=== PATIENT | female | born 1980 | race Caucasian/White ===

== ENCOUNTER 2017-10-08 15:24 | Emergency (ER) | payer MEDICAID ==
[~2017-10-08] VITALS: Ht 165.1 cm; Wt 61.1 kg
[~2017-10-08 15:24] MED LIST: IBUP-1222 PO; OXYC-302 PO; PREN1TAB56 PO
[2017-10-08] MEDS ORDERED: LIDOCAINE 1%, 10ML INFIL ONE (16:00)
[2017-10-08] MEDS ORDERED: LIDOCAINE-MPF 1%, 5ML ONE (17:49)
[2017-10-08] MEDS ORDERED: KETOROLAC 30 MG/1 ML ONE (18:34)
[2017-10-08] MEDS ORDERED: KETOROLAC 30 MG/1 ML IM ONE (19:00)
[2017-10-08] MEDS ORDERED: CLINDAMYCIN 150 MG CAPSULE PO ONE (19:00)
[2017-10-08] MEDS ORDERED: CLINDAMYCIN 150 MG CAPSULE ONE (19:11)
[2017-10-08 19:44] VITALS: BP 111/74
== END 2017-10-08 19:45 | disposition home or self-care (01) ==
LOC: ED 19:21
DX: L02.31 Cutaneous abscess of buttock (principal)
CPT/HCPCS: 10060; 96372; 99283; J1885

== ENCOUNTER 2017-11-23 18:27 | Emergency (ER) | payer MEDICAID ==
[~2017-11-23] VITALS: Ht 165.1 cm; Wt 60.0 kg
[~2017-11-23 18:27] MED LIST changes: +Birth Control
[2017-11-23 18:40] VITALS: BP 118/86
[2017-11-23] MEDS ORDERED: LIDOCAINE-MPF 2% ,5ML ONE (19:44)
[2017-11-23] MEDS ORDERED: LIDOCAINE 1%, 10ML INFIL ONE (20:00)
== END 2017-11-23 20:07 | disposition home or self-care (01) ==
LOC: ED 20:04
DX: L03.311 Cellulitis of abdominal wall (principal); L02.211 Cutaneous abscess of abdominal wall
CPT/HCPCS: 10060; 99283; J3490

== ENCOUNTER 2017-11-26 09:11 | Emergency (ER) | payer MEDICAID ==
[~2017-11-26] VITALS: Ht 165.1 cm; Wt 60.0 kg
[2017-11-26 09:13] VITALS: BP 113/77
== END 2017-11-26 10:17 | disposition home or self-care (01) ==
LOC: ED 10:14
DX: S31.119D Laceration without foreign body of abdominal wall, unspecified quadrant without penetration into peritoneal cavity, subsequent encounter (principal); X58.XXXD Exposure to other specified factors, subsequent encounter
CPT/HCPCS: 99281

== ENCOUNTER → 2020-10-12 | Outpatient (CLI) | payer OTHER ==
[~2020-10-12] MED LIST changes: -OXYC-302 PO; +OXYC1TAB14 PO
== END | disposition home or self-care (01) ==
LOC: RAD 13:47
PROVIDERS: ATTEND Obstetrics & Gynecology
DX: O36.80X0 Pregnancy with inconclusive fetal viability, not applicable or unspecified (principal); O36.4XX0 Maternal care for intrauterine death, not applicable or unspecified; O67.8 Other intrapartum hemorrhage; Z3A.09 9 weeks gestation of pregnancy
CPT/HCPCS: 76801

== ENCOUNTER 2020-10-18 09:18 | Day surgery (SDC) | payer OTHER ==
[~2020-10-18] VITALS: Ht 165.1 cm; Wt 62.3 kg
[2020-10-18 09:32] VITALS: BP 108/74
[2020-10-18] MEDS ORDERED: CHLORHEXIDINE 15 ML UDC ONE (09:32)
[2020-10-18] MEDS ORDERED: CHLORHEXIDINE 15 ML UDC PO ONE (10:00)
[2020-10-18] MEDS ORDERED: LIDOCAINE-MPF 1%, 2ML INFIL ONE (10:00)
[2020-10-18] MEDS ORDERED: LACTATED RINGERS 1,000 ML IV SCH (10:00)
[2020-10-18 10:08] LABS: BASOPHILS % (AUTO) 1 % (0-1); EOSINOPHILS % (AUTO) 2 % (1-7); LYMPHOCYTES % (AUTO) 28 % (22-44); MEAN CORPUSCULAR HEMOGLOBIN 28.7 pg (27.0-34.8); MEAN CORPUSCULAR HGB CONC 33.3 g/dL (32.4-35.8); MEAN PLATELET VOLUME 8.8 fL (7.4-10.4); MONOCYTES % (AUTO) 7 % (2-9); NEUTROPHILS % (AUTO) 63 % (42-75); PLATELET COUNT 210 x10^3/uL (130-400); RED BLOOD COUNT 4.49 x10^6/uL (3.82-5.3); RED CELL DISTRIBUTION WIDTH 16.3 % (9.6-15.2)
[2020-10-18 10:09] LABS: MD NO
[2020-10-18] MEDS ORDERED: MIDAZOLAM 1 MG/ML, 2ML ONE (10:11)
[2020-10-18] MEDS ORDERED: FENTANYL PF 100 MCG/2ML ONE (10:11)
[2020-10-18] MEDS ORDERED: HALOPERIDOL 5 MG/ML IV PRN (10:30)
[2020-10-18] MEDS ORDERED: LABETALOL 5MG/ML, 20ML IV PRN (10:30)
[2020-10-18] MEDS ORDERED: MEPERIDINE/PF 25MG/0.5ML IVPush PRN (10:30)
[2020-10-18] MEDS ORDERED: OXYcodone 5 MG/5 ML ORAL.SOL UDC PO PRN (10:30)
[2020-10-18] MEDS ORDERED: DIPHENHYDRAMINE 50 MG/ML, 1ML IVPush PRN (10:30)
[2020-10-18] MEDS ORDERED: hydrALAzine 20 MG/ML, 1ML IV PRN (10:30)
[2020-10-18] MEDS ORDERED: HYDROmorphone 1 MG/ML, 1ML INJ IVPush PRN (10:30)
[2020-10-18] MEDS ORDERED: FENTANYL PF 100 MCG/2ML IV PRN (10:30)
[2020-10-18] MEDS ORDERED: ACETAMINOPHEN 325 MG TABLET PO PRN (10:30)
[2020-10-18] MEDS ORDERED: PROMETHAZINE 25 MG/ML, 1ML IVPush PRN (10:30)
[2020-10-18] MEDS ORDERED: OXYTOCIN 10 UNITS/ML, 1ML ONE (11:01)
[2020-10-18] MEDS ORDERED: MISOPROSTOL 200 MCG TABLET ONE (11:01)
[2020-10-18] MEDS ORDERED: METHYLERGONOVINE 0.2 MG/ML IM ONE (11:01)
[2020-10-18] MEDS ORDERED: ONDANSETRON 2MG/ML, 2ML ONE ×2 (11:53→12:27)
[2020-10-18] MEDS ORDERED: DEXAMETHASONE 4 MG/ML, 1ML ONE (11:53)
[2020-10-18] MEDS ORDERED: PROPOFOL 10 MG/ML, 20ML ONE (12:27)
[2020-10-18] MEDS ORDERED: CEFAZOLIN 1,000 MG ONE (12:27)
[2020-10-18] MEDS ORDERED: OXYC1TAB14 PO (13:54)
[2020-10-18] MEDS ORDERED: IBUP-1223 PO (13:56)
== END 2020-10-18 14:38 | disposition home or self-care (01) ==
LOC: OUT 09:18
PROVIDERS: ATTEND Obstetrics & Gynecology
DX: O02.1 Missed abortion (principal); Z20.822 Contact with and (suspected) exposure to COVID-19; Z79.899 Other long term (current) drug therapy
CPT/HCPCS: 36415; 59820; 85025; 86850; 86900; 88305; J1100; J2210; J2250; J2405; J2704; J3010; J7120; U0003; J0690; J2590